=== PATIENT | female | born 1985 | race Two or more races ===

== ENCOUNTER → 2024-04-19 | Outpatient (CLI) | payer OTHER ==
[2024-04-19 16:41] LABS: Basophils # (auto) 0.1 10 ^3/uL (0-0.2); Basophils % (auto) 0.8 % (0.0-2.0); Eosinophils # (auto) 0.1 10 ^3/uL (0-0.8); Eosinophils % (auto) 0.8 % (0.0-7.0); Hematocrit 40.9 % (36.0-46.0); Hemoglobin 13.5 g/dL (12.2-16.2); Lymphocytes # (auto) 2.4 10 ^3/uL (0.4-5.4); Lymphocytes % (auto) 24.4 % (10.0-50.0); Mean Corpuscular Hemoglobin 27.9 pg (28.0-32.0); Mean Corpuscular Hgb Conc. 32.9 g/dL (32.0-36.0); Mean Corpuscular Volume 84.9 fL (80.0-100.0); Monocytes # (auto) 0.5 10 ^3/uL (0-1.3); Monocytes % (auto) 5.2 % (0.0-12.0); Neutrophils # (auto) 6.8 10 ^3/uL (1.6-8.6); Neutrophils % (auto) 68.8 % (37.0-80.0); Nucleated Red Blood Cells % 0.1 %; Platelet Count (auto) 334 10^3/uL (140-450); Red Blood Cells 4.82 10^6/uL (4.0-5.20); Red Cell Distribution Width 14.2 % (11.8-14.3); White Blood Cell 9.9 10^3/uL (4.4-10.8)
[2024-04-19 17:04] LABS: Albumin 4.6 g/dL (3.2-4.8); Alkaline Phosphatase 70 U/L (46-116); Anion Gap 6 (5-15); BUN/Creatinine Ratio 17.3 (10.0-20.0); Beta HCG, Quantitative 511.4 mIU/mL (1.5-4.2); Bilirubin, Total 0.4 mg/dL (0.2-1.0); Blood Urea Nitrogen 13 mg/dL (9-23); Calcium 9.9 mg/dL (8.7-10.4); Carbon Dioxide 23 mmol/L (20-31); Glucose 97 mg/dL (74-106); Potassium 3.7 mmol/L (3.5-5.1); Sodium 137 mmol/L (136-145); Total Protein 7.6 g/dL (5.7-8.2)
[2024-04-19 17:07] LABS: Alanine Aminotransferase < 9 U/L (7-40); Aspartate Aminotransferase 11 U/L (13-40); Chloride 108 mmol/L (98-107)
[2024-04-19 17:08] LABS: Thyroid Stimulating Hormone 1.96 uIU/mL (0.55-4.78)
[2024-04-19 17:22] LABS: Creatinine, Urine 50.77 mg/dL (30.0-125.0); Urine Protein/Creatinine Ratio 0.12
[2024-04-19 17:29] LABS: Protein, Urine < 6.0 mg/dL (1-14)
[2024-04-20 07:06] LABS: RPR Non Reactive (Non Reactive)
[2024-04-20 08:06] LABS: Varicella Zoster IgG Antibody Reactive (Non Reactive)
[2024-04-22 09:06] LABS: QuantiFERON-TB Gold Plus Negative (Negative)
== END | disposition home or self-care (01) ==
LOC: LAB 15:53
PROVIDERS: ATTEND Obstetrics & Gynecology
DX: Z34.80 Encounter for supervision of other normal pregnancy, unspecified trimester (principal); Z36.0 Encounter for antenatal screening for chromosomal anomalies; Z31.430 Encounter of female for testing for genetic disease carrier status for procreative management; N39.0 Urinary tract infection, site not specified; Z79.899 Other long term (current) drug therapy; Z3A.00 Weeks of gestation of pregnancy not specified
CPT/HCPCS: 36415; 80053; 82570; 83036; 84156; 84439; 84443; 84702; 85025; 86592; 86703; 86762; 86787; 86850; 86900; 86901; 87086; 87340; 87902

== ENCOUNTER → 2024-09-21 | Outpatient (CLI) | payer OTHER ==
[2024-09-21 10:32] LABS: Basophils # (auto) 0 10 ^3/uL (0-0.2); Basophils % (auto) 0.4 % (0.0-2.0); Eosinophils # (auto) 0.1 10 ^3/uL (0-0.8); Eosinophils % (auto) 1.7 % (0.0-7.0); Hematocrit 32.2 % (36.0-46.0); Hemoglobin 10.8 g/dL (12.2-16.2); Lymphocytes # (auto) 1.7 10 ^3/uL (0.4-5.4); Mean Corpuscular Hemoglobin 28.3 pg (28.0-32.0); Mean Corpuscular Hgb Conc. 33.5 g/dL (32.0-36.0); Mean Corpuscular Volume 84.4 fL (80.0-100.0); Monocytes # (auto) 0.6 10 ^3/uL (0-1.3); Monocytes % (auto) 9.3 % (0.0-12.0); Neutrophils # (auto) 4.3 10 ^3/uL (1.6-8.6); Neutrophils % (auto) 63.6 % (37.0-80.0); Nucleated Red Blood Cells % 0.1 %; Platelet Count (auto) 250 10^3/uL (140-450); Red Blood Cells 3.81 10^6/uL (4.0-5.20); Red Cell Distribution Width 12.8 % (11.8-14.3); White Blood Cell 6.8 10^3/uL (4.4-10.8)
[2024-09-21 10:46] LABS: Albumin 3.5 g/dL (3.2-4.8); Alkaline Phosphatase 58 U/L (46-116); Anion Gap 8 (5-15); BUN/Creatinine Ratio 12.5 (10.0-20.0); Carbon Dioxide 22 mmol/L (20-31); Glucose 79 mg/dL (74-106); Potassium 3.8 mmol/L (3.5-5.1); Sodium 138 mmol/L (136-145); Total Protein 6.2 g/dL (5.7-8.2)
[2024-09-21 10:48] LABS: Alanine Aminotransferase < 9 U/L (7-40); Aspartate Aminotransferase 8 U/L (13-40); Bilirubin, Total 0.3 mg/dL (0.2-1.0); Blood Urea Nitrogen 6 mg/dL (9-23); Calcium 7.9 mg/dL (8.7-10.4); Chloride 108 mmol/L (98-107)
[2024-09-23 07:06] LABS: Chlamydia Trachomatis, NAA Negative (Negative); Neisseria gonorrhoeae, NAA Negative (Negative)
== END | disposition home or self-care (01) ==
LOC: LAB 09:33
DX: Z34.80 Encounter for supervision of other normal pregnancy, unspecified trimester (principal); Z79.899 Other long term (current) drug therapy
CPT/HCPCS: 36415; 80053; 82951; 83036; 85025; 86780; 86850; 86900; 86901

== ENCOUNTER 2024-11-08 02:48 | Observation (INO) | payer OTHER, MEDICAID ==
[~2024-11-08] VITALS: Ht 147.3 cm; Wt 73.9 kg
--- NOTE | 2024-11-08 17:38 | DVH ---
BIOPHYSICAL PROFILE HISTORY: hx of ptl TECHNIQUE: Multiple transabdominal real-time grayscale sonographic images through the gravid uterus of the fetus with duplex Doppler color flow and M-mode spectral analysis FINDINGS: BIOPHYSICAL PROFILE: breathing score: 2 movement score: 2 tone score: 2 Quantitative DANA score: 2 (DANA: 16.7 Cm.) Total score: 8/8 The cervix closed and measures 3.5 cm long Single live fetus in cephalic presentation. heart rate 176 beats per minute. Grade 1 placenta without previa or abruption Single live fetus at 32 weeks 5 days Biophysical profile score 8/ corresponding to an VALENTINE of 12/29/2024 IMPRESSION: 1. Biophysical profile score: 8/8
[2024-11-08] MEDS: TERBUTALINE SULFATE 1 MG/ML 1ML VIAL SC SCH (17:45)
[2024-11-08] MEDS: TERBUTALINE SULFATE 1 MG/ML 1ML VIAL SC ONE (18:10)
[2024-11-08] MEDS: BETAMETHASONE ACET (30mg/5ml) 5ml Vial 6mg/ml IM ONE (18:37)
[2024-11-08] MEDS: LACTATED RINGER'S 1,000 ML IV ONE (18:37)
[2024-11-08] MEDS: NIFEdipine 10 MG CAP PO ONE (19:08)
[2024-11-09] MEDS ORDERED: NIFE10CA52 PO (18:21)
[2024-11-09] MEDS ORDERED: PREN-96 PO (18:22)
--- NOTE | 2024-11-13 14:49 | DVHDS2 ---
Physician Discharge Progress N Final Diagnosis: ptl Operations or Procedures: Operations or Procedures nst reactive reviwed,eduardoo Condition on Discharge: Good Disposition: Home Discharge Instructions: Diet: Regular Activity: Bed rest Medications: na Follow Up Care: Specialist: 1w Discharge Statement: "Patient was advised to return to the ER or call 911 if any headaches, dizz iness, shortness of breath, chest pain, abdominal pain, bleeding, fevers, or worsening of medical condition. Patient was counseled about treatment plan, medications, possible side effects, patientverbalized understanding. All questions were answered to the best of my ability. This discharge took greater then 30 minutes in planning, reviewing documentation, counseling the patient, and discussing with other team members." Visit Coding OBGYN Date of Service: Nov 08, 2024 Billing Provider: MOHIT JIMÉNEZ DO HEAD OF STRATEGY Common Visit Codes: 92871-[id number] OBS CARE (HIGH) HEAD OF STRATEGY Procedure Codes: 95954-49- NON-STRESS TEST MOHIT JIMÉNEZ DO Nov 13, 2024 14:49
== END 2024-11-08 20:19 | disposition home or self-care (01) ==
LOC: LDRP 15:55
PROVIDERS: ADMIT Obstetrics & Gynecology; ATTEND Obstetrics & Gynecology
DX: O60.03 Preterm labor without delivery, third trimester (principal); Z3A.32 32 weeks gestation of pregnancy; Z79.899 Other long term (current) drug therapy; Z98.890 Other specified postprocedural states
CPT/HCPCS: 76817; 76818; 81002; 94760; 96360; 96361; 96372; G0378; J0702; J3105; 59025; 76819

== ENCOUNTER 2024-11-09 03:02 | Observation (INO) | payer OTHER, MEDICAID ==
[~2024-11-09] VITALS: Ht 147.3 cm; Wt 73.0 kg
[2024-11-09] MEDS ORDERED: NIFE10CA52 PO (18:21)
[2024-11-09] MEDS ORDERED: PREN-96 PO (18:22)
[2024-11-09] MEDS: BETAMETHASONE ACET (30mg/5ml) 5ml Vial 6mg/ml IM ONE (19:02)
--- NOTE | 2024-11-09 19:06 | DVHDS2 ---
Physician Discharge Progress N Final Diagnosis: 32w6d IUP presenting for second dose of betamethasone Secondary Diagnosis: NST reactive, sono Operations or Procedures: Operations or Procedures NST: reactive Other Interventions Other Interventions IM betamethasone Condition on Discharge: Good Disposition: Home Discharge Instructions: Diet: Regular Activity: Bed rest Activity comment: Patient given off work note Follow Up/Referral: Presenting for NST on 11/14 Medications: Continue procardia. Follow Up Care: Discharge Statement: -Patient was advised to return to the ER or call 911 if any headaches, dizziness, shortness of breath, chest pain, abdominal pain, bleeding, fevers, or worsening of medical condition. -Discussed labor precautions and kick counts. -Patient was counseled about treatment plan, medications, possible side effects, patientverbalized understanding. All questions were answered to the best of my ability. -This discharge took greater then 30 minutes in planning, reviewing documentation, counseling the patient, and discussing with other team members. Visit Coding OBGYN Date of Service: Nov 09, 2024 Billing Provider: SAMUEL VASQUEZ CNM CASTING SORTER Common Visit Codes: 53148-[id number] OBS CARE (MOD) CASTING SORTER Procedure Codes: 30023-60- NON-STRESS TEST SAMUEL VASQUEZ CNM Nov 09, 2024 19:06
== END 2024-11-09 19:19 | disposition home or self-care (01) ==
LOC: LDRP 18:11
PROVIDERS: ADMIT Obstetrics & Gynecology; ATTEND Obstetrics & Gynecology
DX: O99.323 Drug use complicating pregnancy, third trimester (principal); F15.10 Other stimulant abuse, uncomplicated; Z3A.32 32 weeks gestation of pregnancy; Z79.899 Other long term (current) drug therapy; Z98.890 Other specified postprocedural states
CPT/HCPCS: 59025; 81002; 94760; 96372; G0378; J0702

== ENCOUNTER 2024-11-14 09:00 | Observation (INO) | payer OTHER, MEDICAID ==
[~2024-11-14 09:00] MED LIST: NIFE10CA52 PO; PREN-96 PO
--- NOTE | 2024-11-14 10:11 | DVH ---
BIOPHYSICAL PROFILE HISTORY: PTL TECHNIQUE: Multiple transabdominal real-time grayscale sonographic images through the gravid uterus of the fetus with duplex Doppler color flow and M-mode spectral analysis FINDINGS: BIOPHYSICAL PROFILE: breathing score: 2 movement score: 2 tone score: 2 Quantitative DANA score: 2 (DANA: 14.7 Cm.) Total score: 8 The cervix measures 4.8 cm. Single live fetus in cephalic presentation. heart rate 153 beats per minute. Anterior placenta without previa or abruption IMPRESSION: Biophysical profile score: 8
--- NOTE | 2024-11-15 04:49 | DVHDS2 ---
Physician Discharge Progress N Final Diagnosis: 33WKS PTL Operations or Procedures: Operations or Procedures NST REACTIVE REVIWED,SONO Condition on Discharge: Good Disposition: Home Discharge Instructions: Diet: Regular Activity: No Restrictions, As Tolerated Medications: NA Follow Up Care: Specialist: 1W Discharge Statement: "Patient was advised to return to the ER or call 911 if any headaches, dizziness, shortness of breath, chest pain, abdominal pain, bleeding, fevers, or worsening of medical condition. Patient was counseled about treatment plan, medications, possible side effects, patientverbalized understanding. All questions were answered to the best of my ability. This discharge took greater then 30 minutes in planning, reviewing documentat ion, counseling the patient, and discussing with other team members." Visit Coding OBGYN Date of Service: Nov 14, 2024 Billing Provider: MOHIT JIMÉNEZ DO CUTTING AND BONING SUPERVISOR Common Visit Codes: 48813-OLOPXSI OBS CARE (HIGH) CUTTING AND BONING SUPERVISOR Procedure Codes: 34832-08- NON-STRESS TEST MOHIT JIMÉNEZ DO Nov 15, 2024 04:49
== END 2024-11-14 10:26 | disposition home or self-care (01) ==
LOC: LDRP 09:00
PROVIDERS: ADMIT Obstetrics & Gynecology; ATTEND Obstetrics & Gynecology
DX: O60.03 Preterm labor without delivery, third trimester (principal); Z79.899 Other long term (current) drug therapy; Z3A.33 33 weeks gestation of pregnancy
CPT/HCPCS: 76817; 76818; 81002; 94760; G0378; 59025; 76819

== ENCOUNTER 2024-11-21 06:30 | Observation (INO) | payer OTHER, MEDICAID ==
--- NOTE | 2024-11-21 09:11 | DVH ---
CLINICAL HISTORY: labor. COMPARISON: US BIOPHYSICAL PROFILE on DOS: 11/14/24, US BIOPHYSICAL PROFILE on DOS: 11/08/24 TECHNIQUE: biophysical profile was performed. Transabdominal sonographic images of the fetus we re obtained. Translabial imaging was performed to evaluate the cervix. FINDINGS: The fetus is in cephalic position. heart rate measures 142 BPM. Amniotic fluid index measures 13.8 cm. The placenta is anterior in position without evidence of previa or abruption. Cervi tomi length measures 4.0 cm. Cervix is closed. BPP profile is an overall score of 8/8, with 2/2 points for breathing, with at least one episode of breathing over a 30 second duration during a 30 minute observation, 2/2 points for m ovements, with 3 or more discrete body or limb movements, 2/2 points for tone, with one or more episodes of extremity extension with return to flexion, or opening and closing of hand, and 2/ 2 points for amniotic fluid, with at least 1 pocket of amniotic fluid that measures 2 cm in 2 perpend icular planes. IMPRESSION: 1. BPP score of 8/ 2. Cervix is closed and measures up to 4 cm in length.
--- NOTE | 2024-11-21 09:42 | DVHDS2 ---
Physician Discharge Progress N Final Diagnosis: ptl 34wks Operations or Procedures: Operations or Procedures nst reactive reviwed,sono Condition on Discharge: Good Disposition: Home Discharge Instructions: Diet: Regular Activity: No Restrictions, As Tolerated Medications: na Follow Up Care: Specialist: 1w Discharge Statement: "Patient was advised to return to the ER or call 911 if any headaches, dizziness, shortness of breath, chest pain, abdominal pain, bleeding, fevers, or worsening of medical condition. Patient was counseled about treatment plan, medications, possible side effects, patientverbalized understanding. All questions were answered to the best of my ability. This discharge took greater then 30 minutes in planning, reviewing documentat ion, counseling the patient, and discussing with other team members." Visit Coding OBGYN Date of Service: Nov 21, 2024 Billing Provider: MOHIT JIMÉNEZ DO TESTER ROCKET ENGINE Common Visit Codes: 62517-ERSRRNN INP/OBS CARE (HIGH) TESTER ROCKET ENGINE Procedure Codes: 12100-06- NON-STRESS TEST MOHIT JIMÉNEZ DO Nov 21, 2024 09:42
== END 2024-11-21 09:44 | disposition home or self-care (01) ==
LOC: LDRP 08:05
PROVIDERS: ADMIT Obstetrics & Gynecology; ATTEND Obstetrics & Gynecology
DX: O60.03 Preterm labor without delivery, third trimester (principal); Z3A.34 34 weeks gestation of pregnancy; Z79.899 Other long term (current) drug therapy; Z87.891 Personal history of nicotine dependence
CPT/HCPCS: 76818; 81002; 94760; G0378; 59025; 76819

== ENCOUNTER 2024-11-28 09:25 | Observation (INO) | payer OTHER, MEDICAID ==
--- NOTE | 2024-11-28 12:10 | DVHDS2 ---
Physician Discharge Progress N Final Diagnosis: ptl 35wks Operations or Procedures: Operations or Procedures nst reactive reviwed,sono Condition on Discharge: Good Disposition: Home Discharge Instructions: Diet: Regular Activity: No Restrictions, As Tolerated Medications: na Follow Up Care: Specialist: 1w Discharge Statement: "Patient was advised to return to the ER or call 911 if any headaches, dizziness, shortness of breath, chest pain, abdominal pain, bleeding, fevers, or worsening of medical condition. Patient was counseled about treatment plan, medications, possible side effects, patientverbalized understanding. All questions were answered to the best of my ability. This discharge took greater then 30 minutes in planning, reviewing documenta tion, counseling the patient, and discussing with other team members." Visit Coding OBGYN Date of Service: Nov 28, 2024 Billing Provider: MOHIT JIMÉNEZ DO COPY WRITER Common Visit Codes: 74690-[id number] OBS CARE (HIGH) COPY WRITER Procedure Codes: 77548-52- NON-STRESS TEST MOHIT JIMÉNEZ DO Nov 28, 2024 12:10
== END 2024-11-28 10:20 | disposition home or self-care (01) ==
LOC: LDRP 09:25
PROVIDERS: ADMIT Obstetrics & Gynecology; ATTEND Obstetrics & Gynecology
DX: O60.03 Preterm labor without delivery, third trimester (principal); Z3A.35 35 weeks gestation of pregnancy; Z79.899 Other long term (current) drug therapy
CPT/HCPCS: 59025; 81002; 94760; G0378

== ENCOUNTER 2024-12-01 13:43 | Observation (INO) | payer OTHER, MEDICAID ==
--- NOTE | 2024-12-01 15:12 | DVH ---
EXAM: US BIOPHYSICAL PROFILE HISTORY: decreased movement COMPARISON: US BIOPHYSICAL PROFILE on DOS: 11/21/24, US BIOPHYSICAL PROFILE on DOS: 11/14/24, US BIOPHY SICAL PROFILE on DOS: 11/08/24 TECHNIQUE: Multiple transabdominal real-time grayscale sonographic images through the gravid uterus of the fetus with duplex Doppler color flow and M-mode spectral analysis Findings/Impression: Single live intrauterine in vertex presentation with heart rate of 138 bpm. Biophysical profile was performed with 2 points for respirations, 2 points for movement, 2 points for tone and 2 points for amniotic fluid index. Biophysical profile score of 8/8. Amniotic fluid is within normal limits with DANA 13.9 cm and MVP 4.7 cm. Normal DANA (5-25 cm) Normal MVP (2-8 cm)
--- NOTE | 2024-12-02 06:29 | DVHDS2 ---
Discharge Summary Date of Admission Dec 01, 2024 at 13:43 Date of Discharge: Dec 01, 2024 Wounds: none Brief Hx & Hospital Course: Patient here for 36 wks for decreased movement Operations or Procedures NST and US reactive and reassuring Condition at Discharge: Good Final Diagnosis/Problems List 36 weeks reasuring 36 weeks IUP Discharge Disposition: Home Discharge Instruct/Medications Diet: Regular Activity: Light activity Scheduled Nifedipine (Procardia Capsule), 10 MG PO Q4HR, (Reported) Vit W/ Ferrous Fumara ( One Daily), 1 TAB PO DAILY, (Reported) Discharge Statement: "Patient was advised to return to the ER or call 911 if any headaches, dizziness, shortness of breath, chest pain, abdominal pain, bleeding, fevers, or worsening of medical condition. Patient was counseled about treatment plan, medications, possible side effects, patientverbalized understanding. All questions were answered to the best of my ability. This discharge took greater then 30 minutes in planning, reviewing documentation, counseling the patient, and discussing with other team members." ASSESSMENT ASSESSMENT Assessment Visit Coding OBGYN Date of Service: Dec 01, 2024 Billing Provider: GIOVANI MARTINEZ DO ASSISTANT AT SURGERY Common Visit Codes: 69063-RGL/OBS SAME DATE (LOW), 50050-YFS/OBS SAME DATE (MOD), 60998-FIR/OBS SAME DATE (HIGH) ASSISTANT AT SURGERY Procedure Codes: 21379-09- NON-STRESS TEST GIOVANI MARTINEZ DO Dec 02, 2024 06:29
== END 2024-12-01 15:16 | disposition home or self-care (01) ==
LOC: LDRP 13:43
PROVIDERS: ADMIT Obstetrics & Gynecology; ATTEND Obstetrics & Gynecology
DX: O36.8130 Decreased fetal movements, third trimester, not applicable or unspecified (principal); Z3A.36 36 weeks gestation of pregnancy; Z98.890 Other specified postprocedural states; Z79.899 Other long term (current) drug therapy
CPT/HCPCS: 76818; 81002; 94760; G0378; 59025; 76819

== ENCOUNTER 2024-12-05 07:18 | Observation (INO) | payer OTHER, MEDICAID ==
[2024-12-05] MEDS ORDERED: ZOFR4T PO (16:06)
[2024-12-05] MEDS ORDERED: SERT50TA PO (16:06)
--- NOTE | 2024-12-05 16:20 | DVH ---
BIOPHYSICAL PROFILE HISTORY: macro TECHNIQUE: Multiple transabdominal real-time grayscale sonographic images through the gravid uterus of the fetus with duplex Doppler color flow and M-mode spectral analysis FINDINGS: BIOPHYSICAL PROFILE: breathing score: 2 movement score: 2 tone score: 2 Quantitative DANA score: 2 (DANA: 15.6 Cm.) Total score: 8 The cervix is not well-visualized Single live fetus in cephalic presentation. heart rate 129 beats per minute. Anterior placenta without previa or abruption IMPRESSION: Biophysical profile score: 8
--- NOTE | 2024-12-05 16:52 | DVHDS2 ---
Physician Discharge Progress N Final Diagnosis: testing for AMA/macrosomia per Dr. Conway Operations or Procedures: Operations or Procedures 39yo IUP@36.4wks VSS NST reactive FKC/Labor precautions reviewed Dr. Conway consulted, agrees with POC. Other Interventions Other Interventions [address] [address] Ph: [phone] DIAGNOSTIC IMAGING Diagnostic Imaging Report : [id number] Signed PATIENT: MIKKI CLARKE ACCT: [id number] UNIT: [id number] : 1985 LOC: [facility] ROOM / BED: [address] AGE / SEX: 39 / F ADM STATUS: ADM IN SERVICE 1522 ORDERING PHYSICIAN: LYNN HUERTA CNM PROCEDURE(s): BPP - BIOPHYSICAL PROFILE REASON: macro ORDER NUMBER(s): [id number], ACCESSION NUMBER(s): [id number] BIOPHYSICAL PROFILE HISTORY: macro TECHNIQUE: Multiple transabdominal real-time grayscale sonographic images through the gravid uterus of the fetus with duplex Doppler color flow and M-mode spectral analysis FINDINGS: BIOPHYSICAL PROFILE: breathing score: 2 movement score: 2 tone score: 2 Quantitative DANA score: 2 (DANA: 15.6 Cm.) Total score: 8 The cervix is not well-visualized Single live fetus in cephalic presentation. heart rate 129 beats per minute. Anterior placenta without previa or abruption IMPRESSION: Biophysical profile score: 8 ATED BY: NADINE MANZO DO DICTATED DATE/TIME: 12/05/241616 SIGNED BY: NADINE MANZO DO SIGNED DATE/TIME: 12/05/24 161 CC: Condition on Discharge: Stable Disposition: Home Discharge Instructions: Diet: Regular Activity: No Restrictions, As Tolerated Medications: see med list Follow Up Care: Specialist: f/u in 1wk Discharge Statement: "Patient was advised to return to the ER or call 911 if any headaches, dizziness, shortness of breath, chest pain, abdominal pain, bleeding, fevers, or worsening of medical condition. Patient was counseled about treatment plan, medications, possible side effects, patientverbalized understanding. All questions were answered to the best of my ability. This discharge took greater then 30 minutes in planning, reviewing documentation, counseling the patient, and discussing with other team members." Visit Coding OBGYN Date of Service: Dec 05, 2024 Billing Provider: LYNN HUERTA CNM CAPSULE FILLER Common Visit Codes: 56194-[id number] OBS CARE (HIGH) CAPSULE FILLER Procedure Codes: 67880-35- NON-STRESS TEST LYNN HUERTA CNM Dec 05, 2024 16:52
== END 2024-12-05 16:30 | disposition home or self-care (01) ==
LOC: LDRP 08:03 → UNDOADMOB 08:03 → UNDODISOB 08:22 → UNDOADMOB 14:58 → LDRP 14:58 → UNDODISOB 16:30
PROVIDERS: ADMIT Obstetrics & Gynecology; ATTEND Obstetrics & Gynecology
DX: Z36.89 Encounter for other specified antenatal screening (principal); Z3A.36 36 weeks gestation of pregnancy; Z79.899 Other long term (current) drug therapy; Z98.890 Other specified postprocedural states
CPT/HCPCS: 76818; 81002; 94760; G0378; 59025; 76819

== ENCOUNTER 2024-12-12 06:49 | Observation (INO) | payer OTHER, MEDICAID ==
[~2024-12-12] VITALS: Ht 147.3 cm; Wt 73.9 kg
[~2024-12-12 06:49] MED LIST changes: +SERT50TA PO; +ZOFR4T PO
--- NOTE | 2024-12-12 13:07 | DVH ---
BIOPHYSICAL PROFILE HISTORY: Macro Comparison Study: US BIOPHYSICAL PROFILE on DOS: 12/05/24, US BIOPHYSICAL PROFILE on DOS: 12/01/24, US BI OPHYSICAL PROFILE on DOS: 11/21/24, US BIOPHYSICAL PROFILE on DOS: 11/14/24, US BIOPHYSICAL PROFILE on DOS: 11/08/24 TECHNIQUE: Multiple real-time grayscale sonographic images through the gravid uterus of the fetus wi th duplex Doppler color flow and M-mode spectral analysis FINDINGS: BIOPHYSICAL PROFILE: breathing score: 2 movement score: 2 tone score: 2 Quantitative DANA score: 2 (DANA: 16.1 Cm.) Total score: 8 The cervix is not visualized Single live fetus in cephalic presentation. heart rate 187 beats per minute. Anterior placenta without previa or abruption IMPRESSION: Biophysical profile score: 8
--- NOTE | 2024-12-12 14:01 | DVHDS2 ---
Physician Discharge Progress N Final Diagnosis: macrosomia 37wks Operations or Procedures: Operations or Procedures nst reactive reviwed,sono Condition on Discharge: Good Disposition: Home Discharge Instructions: Diet: Regular Activity: Light activity Medications: na Follow Up Care: Specialist: 1w Discharge Statement: "Patient was advised to return to the ER or call 911 if any headaches, dizziness, shortness of breath, chest pain, abdominal pain, bleeding, fevers, or worsening of medical condition. Patient was counseled about treatment plan, medications, possible side effects, patientverbalized understanding. All questions were answered to the best of my ability. This discharge took greater then 30 minutes in planning, reviewing documentation, counseling the patient, and discussing with other team members." Visit Coding OBGYN Date of Service: Dec 12, 2024 Billing Provider: TYREE MACKAY RESIDENT CREDIT RISK ANALYST Common Visit Codes: 24015-[id number] INP/OBS CARE (HIGH) CREDIT RISK ANALYST Procedure Codes: 91887-33- NON-STRESS TEST MOHIT JIMÉNEZ DO Dec 12, 2024 14:01
[2024-12-12] MEDS ORDERED: METR-344 PO (14:47)
== END 2024-12-12 14:56 | disposition home or self-care (01) ==
LOC: LDRP 12:00
PROVIDERS: ADMIT Obstetrics & Gynecology; ATTEND Obstetrics & Gynecology
DX: O36.63X0 Maternal care for excessive fetal growth, third trimester, not applicable or unspecified (principal); Z3A.37 37 weeks gestation of pregnancy; Z79.899 Other long term (current) drug therapy; Z98.890 Other specified postprocedural states
CPT/HCPCS: 76818; 81002; 84112; 94760; G0378; 59025; 76819

== ENCOUNTER 2024-12-18 22:26 | Inpatient (IN) | payer OTHER, MEDICAID ==
[~2024-12-18] VITALS: Ht 30.5 cm; Wt 0.5 kg
[~2024-12-18 22:26] MED LIST changes: +METR-344 PO
[2024-12-18] MEDS ORDERED: LIDOCAINE 2%HCL (LOCAL ANESTH.) INJ 20ML MDV IJ PRN (23:00)
[2024-12-18] MEDS ORDERED: TERBUTALINE SULFATE 1 MG/ML 1ML VIAL SC PRN (23:00)
[2024-12-18] MEDS ORDERED: METHYLERGONOVINE MALEATE 0.2 MG/ML AMP IM ONE (23:00)
[2024-12-18] MEDS ORDERED: CARBOPROST TROMETHAMINE 250 MCG/1ML VIAL IM ONE (23:00)
[2024-12-18] MEDS ORDERED: LACT. RINGERS/OXYTOCIN 20UNITS 1,000 ML IV SCH (23:00)
[2024-12-18] MEDS ORDERED: NALBUPHINE HCL 10 MG/1ml INJECTION IV PRN (23:00)
[2024-12-18 23:15] LABS: Hemoglobin 11.2 g/dL (12.2-16.2); Nucleated Red Blood Cells % 0.0 %
[2024-12-18] MEDS: PENICILLIN G POT 5MIL/D5 50ML 50 ML IV ONE (23:15)
[2024-12-18 23:17] LABS: Hematocrit 33.5 % (36.0-46.0); Mean Corpuscular Hemoglobin 26.4 pg (28.0-32.0); Mean Corpuscular Volume 79.0 fL (80.0-100.0)
[2024-12-18 23:20] LABS: Urine Protein, UAD Negative (Negative)
--- NOTE | 2024-12-18 23:22 | DVHHP2 ---
OB CC & HPI Date Date of Admission: Dec 18, 2024 Patient Identification: : 7 Para: 4 EDC: Dec 29, 2024 EGA: 38.3wk Chief Complaints: Reason for admission: active labor, group B positive strep Admission Nurse Assessment Rev: Yes History of Present Complaints 39yo IUP@38.3wk presents to OB unit with c/o UC since 1900 today, denies any LOF/VB, denies any preE sx PNC: Routine PNC at [facility] OB, adequate visits, PNC complicated by PTL. GTT wnl, GBS positive, dating based on LMP c/w 6wk sono OB hx: x4, all uncomplicated SABx2 Past Medical History Cardiac: No pertinent Hx Pulmonary: No pertinent Hx Central Nervous System: No pertinent Hx GI: No pertinent Hx Hemotology/Oncology: No pertinent Hx Hepatobiliary: No pertinent Hx Psychiatric: Anxiety (takes zoloft) Musculoskeletal: No pertinent Hx Rheumotologic: No pertinent Hx Infectious Disease: No peritnent Hx ENT: No pertinent Hx Renal/: No pertinent Hx Endocrine: No pertinent Hx Dermatology: No pertinent Hx Past Surgical History: Other (leep procedure) OB History OB History Care: Good Care Ultrasounds: Normal mid trimester US Obstetrical Complications: None Medical Complications: None Allergies: Coded Allergies: NO KNOWN ALLERGIES (Unverified , 11/08/24) Home Meds Reported Medications Metronidazole (Flagyl) 500 Mg Tab, 500 MG PO Q8HR, MG 12/12/24 Ondansetron Odt 4MG Tab (ZOFRAN PO) 4 Mg Tb, 4 MG PO PRN for NAUSEA / VOMITING, TAB ODT TAB-DISSOLVE IN MOUTH, THEN SWALLOW 12/05/24 Sertraline Hcl (Zoloft) 50 Mg Tab, 1 TAB PO DAILY, #30 TAB 2 Refills 12/05/24 Vit W/ Ferrous Fumara ( One Daily) Daily Tab, 1 TAB PO DAILY, #90 TAB 3 Refills 11/09/24 Nifedipine (PROCARDIA CAPSULE) 10 Mg Cp, 10 MG PO Q4HR, CAP 11/09/24 Current Medications Current Medications Medications (Trade) Dose Ordered Sig/Armando Route PRN Reason Start Time Stop Time Status Last Admin Lactated Ringer's 1,000 ml @ 125 mls/hr Q8H IV 12/18/24 23:00 Nalbuphine HCl (Nubain) 10 mg Q4HP PRN IV MODERATE PAIN (4-6 PAIN SCALE) 12/18/24 23:00 Penicillin G Potassium [id number] units/Dextrose 50 ml @ 100 mls/hr Q4H IV 12/19/24 03:00 Witmayra Bri (Tucks) 1 pad PRN PRN TOP PERINEAL AREA DISCOMFORT 12/18/24 23:00 Sodium Lauryl Sulfate (Phisoderm) 240 ml PRN PRN TOP PERINEAL AREA DISCOMFORT 12/18/24 23:00 Benzocaine (Dermoplast) 1 applic PRN PRN TOP PERINEAL AREA DISCOMFORT 12/18/24 23:00 Lidocaine HCl (Xylocaine) 20 ml ONCE PRN IJ PERINEAL AREA DISCOMFORT 12/18/24 23:00 Oxytocin 1,000 ml @ 6 ml/hr Q24H IV 12/18/24 23:00 Terbutaline Sulfate (Brethine Inj) 0.25 mg ONCE PRN SC Uterine tachysystole 12/18/24 23:00 Family & Social History Family/Social History Past Family/Social History: denies Blood Type: O+ Rubella: immune RPR/VDRL: Negative GBS Status: Positive (PCN ordered) HBsAG: Negative Review of Systems Constitutional: No symptom reported Ears, Nose, & Throat: No symptom reported Eyes: No symptom reported Pulmonary/Respiratory: No symptom reported Cardiovascular: No symptom reported Gastrointestinal: No symptom reported Genitourinary: No symptom reported Musculoskeletal: No symptom reported Skin: No symptom reported Psychiatric: Anxiety Endocrine: No symptom reported Hemotologic/Lymphatic: No symptom reported OB Admission Exam Physical Exam Vitals: VSS, see chart HEENT: TMs Normal, Fontanelles Normal, Nasal Mucosa Normal, Eyes non-injected, Oropharynx Normal, PERRLA, Moist Membranes, EOMI Heart: Rhythm Normal Lungs: Clear Abdomen: Gravid Extremities: Normal Reflexes: Normal Cervical Dilatation: 5cm Effacement: Other (80) Station: -2 Membranes: Intact Heart Rate: 130's Accelerations: Accelerations Present Decelerations: No Decelerations Jail Variability: Average (6-25) Contractions on Admission: < 5 Minutes Apart Date/Time Contractions Began: 12/18/2024 @ 1900 Frequency of Contractions: 1-4/10 min Duration: 50-110 Intensity: Moderate OB Plan Plan Admitting Diagnosis: 39yo IUP@38.3wks Active labor GBS positive Cat 1 EFM Intact membranes Plan: Expectant Management Other Plan: P: Admit to L&D Informed consent obtained Expectant management for now due to frequent UCs Discussed potential of starting pitocin with pt if UC spaces out. Pt agrees with POC. monitoring per order Routine labs ordered Pain mgmt PRN Frequent position changes in and out of bed encouraged Limit SVE unless necessary Intrauterine resuscitation PRN Anticipate CNM will consult with Dr. Conway PRN Visit Coding OBGYN Date of Service: Dec 19, 2024 Billing Provider: LYNN HUERTA CNM SUPERVISOR BRIDGES AND BUILDINGS Common Visit Codes: [id number] INP/OBS CARE (MOD) SUPERVISOR BRIDGES [employer] BUILDINGS Procedure Codes: 00278-03- NON-STRESS TEST EFFIE SWEENEY Dec 18, 2024 23:22
[2024-12-18] MEDS: LACTATED RINGER'S 1,000 ML IV SCH (23:25)
[2024-12-18] MEDS: WITCH HAZEL-GLYCERIN PAD TOP PRN (23:26)
[2024-12-18] MEDS: PHISODERM TOP SOLN 240ML BTL TOP PRN (23:26)
[2024-12-18] MEDS: DERMOPLAST 60ML BOTTLE TOP PRN (23:26)
[2024-12-18 23:32] LABS: Albumin 3.9 g/dL (3.2-4.8); Anion Gap 12 (5-15); Bilirubin, Total 0.4 mg/dL (0.2-1.0); Calcium 8.9 mg/dL (8.7-10.4); Chloride 106 mmol/L (98-107); Glucose 90 mg/dL (74-106); Potassium 3.8 mmol/L (3.5-5.1); Sodium 137 mmol/L (136-145); Total Protein 7.0 g/dL (5.7-8.2)
[2024-12-18 23:35] LABS: Alanine Aminotransferase < 9 U/L (7-40); Alkaline Phosphatase 127 U/L (46-116); BUN/Creatinine Ratio 9.6 (10.0-20.0); Blood Urea Nitrogen < 5 mg/dL (9-23); Carbon Dioxide 19 mmol/L (20-31)
[2024-12-18 23:35] LABS: Amphetamine Screen, Urine Neg (NEGATIVE); Barbiturate Scree,Urine Neg (NEGATIVE); Benzodiazephine Screen, Urine Neg (NEGATIVE); Cannabinoid Screen, Urine Neg (NEGATIVE); Cocaine Screen, Urine Neg (NEGATIVE); Opiate Scree,Urine Neg (NEGATIVE); Phencyclidine Screen, Urine Neg (NEGATIVE)
[2024-12-18 23:38] LABS: INR 0.95 (0.9-1.15); Partial Thromboplastin Time 26.6 SEC (24.5-34.5); Prothrombin Time 10.1 sec (9.3-11.8)
[2024-12-19] VITALS (7 sets, daily range): BP systolic 104–120; BP diastolic 67–84; PULSE 79–92; RESP 16–18; TEMP 97.9–98.9; O2SAT 97–99
[2024-12-19] MEDS: LACTATED RINGER'S 500 ML IV ONE
[2024-12-19] MEDS: LACT. RINGERS/OXYTOCIN 20UNITS 500 ML IV ONE ×2 (01:02→01:34)
[2024-12-19] MEDS: ROPIVACAINE HCL 100 ML ONE (01:03)
--- NOTE | 2024-12-19 01:28 | LDN2 ---
Labor and Delivery Note Date 12/19/24 Age 39 7 Para 5 AB 2 EDC 12/29/24 EGA 38.4 Diagnosis spontaneous labor Vaginal Delivery: VTX Vacuum Assisted: No Placenta: Spontaneous Sex: Female Apgars 8/9 Nuchal Cord Transected: No Amniotic Fluid: Meconium Stained (moderate), Thin Anesthesia epidural Episiotomy: No EBL 150ml Labs Laboratory Tests 04/19/24 16:17: Hepatitis B Surface Antigen Negative, HIV (1&2) Antibody Negative, Rubella Antibody Positive Blood Bank 12/18/24 23:01: Blood Type O POSITIVE Complications none Conditions stable Data Center Manager Louie Comments/Significant Med Juan Manuel At 0027, this 39yo now delivered a viable female infant encaul by with of 8/9. CARLO presentation, no nuchal cord around baby. placed skin to skin on pt's chest. Cord clamped and cut after pulsation stopped. Cord blood sent. IV Pitocin bolus started. Placenta delivered spontaneously, intact, 3 vessel cord, Leonard. Pt has intact perineum with hemostatic abrasion noted, repair not needed. Cervix, vagina, and labial inspected and intact. Fundus firm at U, midline, light lochia. QBL 150ml. VSS. count correct x 2. Patient to PP care and baby to couplet care, mom and baby stable. Visit Coding OBGYN Date of Service: Dec 19, 2024 Billing Provider: LYNN HUERTA CNM PATHOLOGY MANAGER Common Visit Codes: PROCEDURE ONLY PATHOLOGY MANAGER Procedure Codes: 49021-LKA DEL INCLUDING EFFIE SWEENEY Dec 19, 2024 01:28
[2024-12-19] MEDS ORDERED: PENICILLIN G POTASSIUM 2,500,000 UNITS in D5W 5% 50 ML IV SCH (03:00)
[2024-12-19] MEDS: IBUPROFEN 600 MG TAB PO PRN (03:57)
[2024-12-19] MEDS: DOCUSATE SOD 100 MG CAP PO SCH (10:13)
[2024-12-19] MEDS: PRENATAL VITAMIN TAB PO SCH (10:13)
[2024-12-19 12:23] LABS: Hematocrit 29.7 % (36.0-46.0); Hemoglobin 9.8 g/dL (12.2-16.2); Mean Corpuscular Hemoglobin 26.4 pg (28.0-32.0); Mean Corpuscular Volume 79.9 fL (80.0-100.0); Nucleated Red Blood Cells % 0.0 %
[2024-12-19] MEDS: ACETAMINOPHEN 325 MG TAB PO PRN (15:21)
[2024-12-19] MEDS ORDERED: DOCU-265 PO (19:37)
[2024-12-19] MEDS ORDERED: IBU600T PO (19:37)
[2024-12-19] MEDS ORDERED: FERR30CA PO (19:40)
--- NOTE | 2024-12-20 00:06 | DVHPN2 ---
Progress Note Date Seen: Dec 20, 2024 Subjective S: bleeding is less, eating food without issues, denies lightheaded/dizziness, pain well controlled with oral medications, no concerns with urinating, no BM yet, ambulating well, well BCM undecided but considering BTL vital signs Vital Sign Date Time Temp Pulse Resp B/P (MAP) Pulse Ox O2 Delivery O2 Flow Rate FiO2 12/19/24 19:00 98.0 89 16 116/73 (87) 97 98.0 12/19/24 19:00 Room Air medications Current Medications Medications Dose Ordered Sig/Armando Route Start Time Stop Time Status Last Admin Dose Admin Witch Bri 1 pad PRN PRN TOP 12/18/24 23:00 12/19/24 19:27 1 PAD Sodium Lauryl Sulfate 240 ml PRN PRN TOP 12/18/24 23:00 12/18/24 23:26 240 ML Benzocaine 1 applic PRN PRN TOP 12/18/24 23:00 12/18/24 23:26 1 APPLIC Ibuprofen 600 mg Q6HP PRN PO 12/19/24 01:00 12/19/24 19:27 600 MG Acetaminophen 650 mg Q6HPRN PRN PO 12/19/24 01:00 12/19/24 15:21 650 MG Prenat Multivit/ [place]/Iron/Folic Ac 1 DAILY PO 12/19/24 10:00 12/19/24 10:13 1 Docusate Sodium 200 mg DAILY PO 12/19/24 10:00 12/19/24 10:13 200 MG laboratory and microbiology Laboratory Tests 12/19/24 12:00 12/18/24 23:01 Test 12/18/24 23:01 Range/Units Serum Glucose 90 74-106 mg/dL Objective O: VSS Chest: heart and lung sounds normal. Abd soft, non-tender, fundus firm, BS, no rebound or guarding, Perineum intact, no edema BLE: no edema Lochia - minimal Labs resulted Problems(with codes): (1) Intact perineum (2) Precipitous drop in hematocrit (3) (normal spontaneous vaginal delivery) Assessment/Plan A: 39 yo ppd#1 s/p doing well. Rh status + Rubella status immune Pain control with PO medications Bowel regimen P: D/C home today Rx sent to pharmacy precautions and preeclampsia warning signs reviewed Instructed to review BCM options on [email or web address] and discuss it at PP visit F/U with [facility] OB office in 2 weeks Plan discussed with: Patient EFFIE SWEENEY Dec 20, 2024 00:06
--- NOTE | 2024-12-20 00:12 | DVHDS2 ---
Obstetrics Discharge Summary Obstetrics Discharge Summary Date of Admission: Dec 18, 2024 Date of Discharge: Dec 20, 2024 Reason For Admission: Onset of Labor Procedures: NST Intrapartum Procedures: Spontaneous vaginal deliv Procedures: Hct/date: (12/19/24), Hgb/date: (12/19/24) Operative Complicat: None Discharge Diagnosis: Term -Delivered Discharge Information: Activity (as tolerated, no heavy lifting and nothing in the vagina for 6 weeks), Diet (Routine), Medications (rx sent), Instructions (Routine), Discharge to (Home), Accompanied by (sig other), Discarge date (12/20/24) Discharge Care Plan Problem Pain Goals Pain controlled Know Self care Instructions Take Rx medications, Provide comfort measures, Educate on timing of meds Visit Coding OBGYN Date of Service: Dec 20, 2024 Billing Provider: LYNN HUERTA CNM [employer] Common Visit Codes: 38596-KWG/OBS DISCH DAY <30MIN [employer] Procedure Codes: 18064-HGL DEL INCLUDING EFFIE SWEENEY Dec 20, 2024 00:11
[2024-12-20 03:15] VITALS: BP 112/78; PULSE 83; RESP 16; TEMP 98; O2SAT 98
[2024-12-20 07:15] VITALS: BP 102/65; PULSE 90; RESP 16; TEMP 98.4; O2SAT 99
[2024-12-20 11:07] VITALS: BP 117/79; PULSE 77; RESP 16; TEMP 98.4; O2SAT 100
== END 2024-12-20 13:27 | disposition home or self-care (01) | DRG 807 ==
LOC: LDRP 22:26 → OBSVTOIN 22:35 → LDRP 12-19 09:31
PROVIDERS: ADMIT Obstetrics & Gynecology; ATTEND Obstetrics & Gynecology
PROC: 10E0XZZ Delivery of Products of Conception, External Approach (ICD-10-PCS; principal; 2024-12-19)
PROC: 3E0R3BZ Introduction of Anesthetic Agent into Spinal Canal, Percutaneous Approach (ICD-10-PCS; 2024-12-19)
PROC: 00HU33Z Insertion of Infusion Device into Spinal Canal, Percutaneous Approach (ICD-10-PCS; 2024-12-19)
DX: O99.824 Streptococcus B carrier state complicating childbirth (principal); Z37.0 Single live birth; Z3A.38 38 weeks gestation of pregnancy; O77.0 Labor and delivery complicated by meconium in amniotic fluid
CPT/HCPCS: 36415; 59025; 59409; 62282; 80053; 80307; 81001; 81002; 85025; 85610; 85730; 86803; 86850; 86900; 86901; 94760; 96360; 96361; 96365; 96366; G0378; J2540; J2590; J7060